=== PATIENT | female | born 1990 | race Caucasian/White ===

== ENCOUNTER → 2016-10-18 | Outpatient (CLI) | payer BC ==
[~2016-10-18] MED LIST: ONDA4TAB7 SL
--- NOTE | 2016-10-18 13:38 | DIAGNOSTIC IMAGING REPORT ---
PELVIC ULTRASOUND, TRANSABDOMINAL AND TRANSVAGINAL HISTORY: IRREGULAR MENSTRUATION COMPARISON: None. FINDINGS: Uterus: Unremarkable. Endometrial stripe: 1.2 cm in thickness. Right ovary: Normal in size and demonstrates normal color flow. Left ovary: Normal in size and demonstrates normal color flow. Miscellaneous:No pelvic free fluid. IMPRESSION: No significant abnormality identified within the pelvis. Electronically signed by: Alcon Langley M.D. 10/18/2016 1:35 PM Dictated Date/Time: 10/18/2016 1:30 PM
== END | disposition home or self-care (01) ==
LOC: C.ULTR 12:49
PROVIDERS: ATTEND Nurse Practitioner Family
DX: N94.6 Dysmenorrhea, unspecified (principal); N92.0 Excessive and frequent menstruation with regular cycle